=== PATIENT | female | born 2000 | race Caucasian/White ===

== ENCOUNTER 2020-09-29 20:08 | Emergency (ER) | payer OTHER, SELFPAY ==
[2020-09-29 20:17] VITALS: BP 117/62; PULSE 74; RESP 18; TEMP 37.3; O2SAT 98; BMI 23.6
--- NOTE | 2020-09-29 23:35 | ECG_ITS ---
Test Reason : DIZZINESS, SOB Blood Pressure : / mmHG Vent. Rate : 069 BPM Atrial Rate : 069 BPM P-R Int : 182 ms QRS Dur : 094 ms QT Int : 382 ms P-R-T Axes : 050 077 053 degrees QTc Int : 409 ms Normal sinus rhythm Normal ECG No previous ECGs available Referred By: Maritza Mendoza Electronically Signed By:JHON KIDD MD
--- NOTE | 2020-09-30 00:33 | ED.GENADULT ---
HPI - General Adult General Chief complaint: General Medical Stated complaint: chest pain shortness of breath Time Seen by Provider: 09/29/20 23:34 Source: patient Mode of arrival: ambulatory History of Present Illness HPI narrative: This is a 20-year-old female with history anxiety and currently on a waiting list to speak with an outpatient therapist but denies any suicidal symptoms or history of depression. She states she feels a sometimes at work she will become short of breath, began so hyperventilate and then feels chest pressure with tingling across her face and into bilateral hands. Otherwise, this is not been associated with any fever, chills, nausea vomiting, urinary or GI symptoms. No recent history of long car rides or plane trips, hemoptysis, estrogen supplementation, personal history of cancer, recent surgery or bed bound state, calf pain or calf swelling. Related Data Previous Rx's Medication Instructions Recorded hydroxyzine HCl 25 mg PO TID PRN #7 tab 09/30/20 Allergies Allergy/AdvReac Type Severity Reaction Status Date / Time No Known Allergies Allergy Unverified 01/29/20 19:05 [No Known Allergies*] Review of Systems Review of Systems: Pertinent positives and negatives as stated in HPI and 10 point review of systems is otherwise negative. [facility] Past Medical History Source: nursing notes reviewed Social History Social History Advance Directives: No Advance Directives Information Provided: Yes Patient : No Physical Exam Vital Signs: Vital Signs: Last Vital Signs Temp 99.2 F 09/29/20 20:17 Pulse 74 09/29/20 20:17 Resp 18 09/29/20 20:17 BP 117/62 09/29/20 20:17 Pulse Ox 98 09/29/20 20:17 Body Mass Index 23.6 VITAL SIGNS: Reviewed. GENERAL: Well developed, well nourished, in no acute distress. HEAD: Normocephalic/atraumatic EYES: PERRLA, EOMI EARS: Ext canals without abnormality NOSE: Nares patent bilateral OROPHARYNX: no oral lesions noted, posterior pharynx clear NECK: Supple, no adenopathy LUNGS: Normal breath sounds. No adventitious sounds or accessory muscle use. SpO2<98> CARDIOVASCULAR: Regular rate and rhythm without noted murmurs ABDOMEN: Soft, non-tender, non-distended with bowel sounds. NEUROLOGIC: Alert and oriented x 4. Course Course Course Narrative: This is a 20-year-old female with history and clinical presentation consistent with mild panic attack which has completely resolved on re-evaluation. Patient declined any lab work for further assessment at stating that this increased her anxiety. Urinalysis and urine is otherwise negative for any acute findings. She was provided with a 1 time dose of hydroxyzine and on re-evaluation endorsed improvement in feeling anxious. She is discharged in stable condition with instructions to follow up with the primary care provider. Medical Decision Making Lab Data Labs: Lab Results 09/30/20 09/30/20 Range/Units 01:15 01:15 Urine Color YELLOW Urine Appearance CLEAR Urine pH 6.5 (5.0-8.0) Ur Specific [place] 1.015 (1.005-1.025) Urine Protein NEG (NEG-TRACE) MG/DL Urine Glucose (UA) NEG (NEG) MG/DL Urine Ketones NEG (NEG) MG/DL Urine Blood NEG (NEG) Urine Nitrite NEG (NEG) Ur Leukocyte Esterase NEG (NEG) Urine Test NEGATIVE (NEGATIVE) ECG Data Attestation: I personally reviewed and interpreted this ECG as follows: Prior ECG tracings: not available for review Interpretation: Normal sinus rhythm, HR-69, no evidence of acute ischemia, NH/QRS/QTC are within normal limits. Discharge Plan Discharge Clinical Impression: Anxiety, Panic attack Patient Disposition: Home, Self-Care Instructions: Anxiety (ED), Panic Attack (ED) Additional Instructions: Please follow-up with your primary care provider in the next 2-3 days for re-evaluation. Return to the emergency department for any acute worsening of your symptoms. Prescriptions: New hydroxyzine HCl 25 mg tablet 25 mg PO TID PRN (Reason: anxiety) Qty: 7 RF: 0 Referrals: Sissy Martinez MD [Primary Care Provider] - 2 days (Re-evaluation for anxiety and panic attack symptoms.)
[2020-09-30 01:22] LABS: Glucose Urine UA NEG (NEG); Leukocyte Esterase Urine NEG (NEG); Nitrite Urine NEG (NEG); PH 6.5 (5.0-8.0); Specific Gravity - Urine 1.015 (1.005-1.025); Urine Blood NEG (NEG); Urine Ketones NEG (NEG); Urine Protein NEG (NEG-TRACE)
[2020-09-30 01:23] LABS: Appearance Urine CLEAR; Color Urine YELLOW; UPreg QC Valid YES; Urine Pregnancy NEGATIVE (NEGATIVE)
--- NOTE | 2020-09-30 02:20 | PC.NURSE ---
Patient refused blood work due to increased anxiety related to blood draws. aware. Plan to medicate then discharge home.
[2020-09-30] MEDS: hydrOXYzine HCL 25 MG TABLET PO (02:37)
== END 2020-09-30 02:41 | disposition home or self-care (01) ==
PROVIDERS: Emergency Provider Student in an Organized Health Care Education/Training Program; PCP Pediatrics
DX: F43.0 Acute stress reaction (principal); F41.1 Generalized anxiety disorder; R07.9 Chest pain, unspecified; Z79.899 Other long term (current) drug therapy
CPT/HCPCS: 81003; 81025; 93005; 99283

== ENCOUNTER 2021-02-01 05:14 | Emergency (ER) | payer OTHER, SELFPAY ==
[2021-02-01 05:27] VITALS: BP 127/80; PULSE 83; RESP 18; TEMP 36.4; O2SAT 98; BMI 25.7
--- NOTE | 2021-02-01 05:57 | ED_ITS ---
HPI - Abdominal Pain General Chief Complaint: Abdominal Pain <Itz Luther MD - Last Filed: 02/01/21 06:07> Stated Complaint: stomach pain so bad PT can't sleep <Itz Luther MD - Last Filed: 02/01/21 06:07> Time Seen by Provider: 02/01/21 05:57 <Itz Luther MD - Last Filed: 02/01/21 06:07> Source: patient <Itz Luther MD - Last Filed: 02/01/21 06:07> Mode of arrival: ambulatory <Itz Luther MD - Last Filed: 02/01/21 06:07> Limitations: no limitations <Itz Luther MD - Last Filed: 02/01/21 06:07> History of Present Illness HPI narrative: Patient with history of anxiety been having diffuse abdominal pain for last 2 - 3 days with nausea vomiting diarrhea and out of hydroxyzine with increased anxiety no relation pain with food no fever chills no urinary complaints no flank pain patient never had similar pain in the past <Itz Luther MD - Last Filed: 02/01/21 06:07> Related Data Home Medications: Previous Rx's Medication Instructions Recorded hydroxyzine HCl 25 mg tablet 25 mg PO TID PRN #7 tab 09/30/20 <Itz Luther MD - Last Filed: 02/01/21 06:07> Allergies/Adverse Reactions: Allergies Allergy/AdvReac Type Severity Reaction Status Date / Time No Known Allergies Allergy Unverified 01/29/20 19:05 [No Known Allergies*] <Itz Luther MD - Last Filed: 02/01/21 06:07> Review of Systems Review of Systems Yes all other systems are reviewed and are negative <Itz Luther MD - Last Filed: 02/01/21 06:07> Physical Exam Vital Signs: Vital Signs: Last Vital Signs Temp 97.6 F 02/01/21 05:27 Pulse 61 02/01/21 09:44 Resp 18 02/01/21 09:44 BP 127/80 02/01/21 05:27 Pulse Ox 98 02/01/21 09:44 Body Mass Index 25.7 <Itz Luther MD - Last Filed: 02/01/21 06:07> Vital Signs: Last Vital Signs Temp 97.6 F 02/01/21 05:27 Pulse 61 02/01/21 09:44 Resp 18 02/01/21 09:44 BP 127/80 02/01/21 05:27 Pulse Ox 98 02/01/21 09:44 Body Mass Index 25.7 <Darlin Garner MD - Last Filed: 02/01/21 09:51> Appearance: Alert. Oriented X3. No acute distress. Anxious Eyes: No pallor or icterus ENT: Pharynx normal. Oral Mucosa moist Neck: Normal inspection. Neck supple. CVS: Normal heart rate and rhythm. Pulses normal. Respiratory: No respiratory distress. Equal air entry bilateral, Abdomen: Soft, diffuse abdominal tenderness Souza sign negative no rebound tenderness or guarding, Bowel sounds are present, no mass palpable, no CVA tenderness Skin: Skin warm and dry. Normal skin color. Normal skin turgor. Neuro: Oriented X 3. <Itz Luther MD - Last Filed: 02/01/21 06:07> Course Course Course Narrative: Assessment and plan. This is a 20-year-old female came in for evaluation of abdominal pain and anxiety. Patient presented with 2 days of abdominal pain, nausea, vomiting, diarrhea seen initially by and signed out to me to check labs and reassess the patient. Patient now feels better able to tolerate p.o. intake, labs are unremarkable abdominal exam is soft, nontender, no rebound, normal bowel sounds. Will reassure and discharge. <Darlin Garner MD - Last Filed: 02/01/21 09:51> MDM - Abdominal Pain MDM Narrative Medical decision making narrative: Patient with diffuse abdominal pain likely from anxiety no focal tenderness will check the labs for to rule out pancreatitis/ cholecystitis/UTI <Itz Luther MD - Last Filed: 02/01/21 06:07> Lab Data Attestation: I reviewed the patient's lab results. <Darlin Garner MD - Last Filed: 02/01/21 09:51> Result diagrams: : 02/01/21 06:25 02/01/21 06:25 <Itz Luther MD - Last Filed: 02/01/21 06:07> Labs: Lab Results 02/01/21 02/01/21 02/01/21 Range/Units 06:25 06:25 07:50 WBC 11.2 H (4.8-10.8) X10*3/uL RBC 4.22 (4.20-5.50) X10*6/uL Hgb 12.6 (12.0-16.0) g/dl Hct 38.1 (37-47) % MCV 90.3 (80-98) fL MCH 29.9 (27.0-33.0) pg MCHC 33.1 (31.0-35.0) g/dl RDW 11.5 (11.0-16.0) % Plt Count 362 (160-400) X10*3/uL MPV 9.6 (9.4-12.3) fL Immature Gran % (Auto) 0.5 H (0.0-0.4) % Neut % (Auto) 75.0 H (45-73) % Lymph % (Auto) 16.2 L (20-40) % Maries % (Auto) 7.8 (2-11) % Eos % (Auto) 0.4 (0-4) % Baso % (Auto) 0.1 (0-2) % Lymph # (Auto) 1.8 (1.2-4.9) X10*3/uL Maries # (Auto) 0.9 (0.1-1.2) X10*3/uL Eos # (Auto) 0.0 (0.0-0.4) X10*3/uL Baso # (Auto) 0.0 (0.0-0.2) X10*3/uL Abs Immat Gran (auto) 0.06 H (0.00-0.03) X10*3/uL Absolute Neuts (auto) 8.4 H (2.0-8.3) X10*3/uL Absolute Nucleated RBC 0.000 (0.0-0.012) X10*3/uL Nucleated RBC % (auto) 0.0 (0.0-0.2) /100WBC Sodium 138 (135-145) mmol/L Potassium 3.9 (3.3-5.1) mmol/L Chloride 105 (96-108) mmol/L Carbon Dioxide 24 (22-29) mmol/L Anion Gap 13 (12-20) BUN 9 (9-16) mg/dL Creatinine 0.74 (0.5-1.4) mg/dL Estim Creat Clear Calc 119.3 Estimated GFR > 60 Random Glucose 128 H (60-115) mg/dL Calcium 9.9 (8.4-10.2) mg/dL Total Bilirubin 0.7 (0.0-1.0) mg/dL Direct Bilirubin 0.2 (0.0-0.5) mg/dL AST 13 (5-31) U/L ALT 19 (0-31) U/L Alkaline Phosphatase 75 (39-117) U/L Total Protein 7.5 (6.5-8.0) g/dL Albumin 4.5 (3.5-5.0) g/dL Lipase 15 (8-78) U/L Urine Color YELLOW Urine Appearance CLEAR Urine pH 6.5 (5.0-8.0) Ur Specific [place] <= 1.005 (1.005-1.025) Urine Protein NEG (NEG-TRACE) MG/DL Urine Glucose (UA) NEG (NEG) MG/DL Urine Ketones NEG (NEG) MG/DL Urine Blood NEG (NEG) Urine Nitrite NEG (NEG) Ur Leukocyte Esterase NEG (NEG) Urine Test (NEGATIVE) 02/01/21 Range/Units 07:50 WBC (4.8-10.8) X10*3/uL RBC (4.20-5.50) X10*6/uL Hgb (12.0-16.0) g/dl Hct (37-47) % MCV (80-98) fL MCH (27.0-33.0) pg MCHC (31.0-35.0) g/dl RDW (11.0-16.0) % Plt Count (160-400) X10*3/uL MPV (9.4-12.3) fL Immature Gran % (Auto) (0.0-0.4) % Neut % (Auto) (45-73) % Lymph % (Auto) (20-40) % Maries % (Auto) (2-11) % Eos % (Auto) (0-4) % Baso % (Auto) (0-2) % Lymph # (Auto) (1.2-4.9) X10*3/uL Maries # (Auto) (0.1-1.2) X10*3/uL Eos # (Auto) (0.0-0.4) X10*3/uL Baso # (Auto) (0.0-0.2) X10*3/uL Abs Immat Gran (auto) (0.00-0.03) X10*3/uL Absolute Neuts (auto) (2.0-8.3) X10*3/uL Absolute Nucleated RBC (0.0-0.012) X10*3/uL Nucleated RBC % (auto) (0.0-0.2) /100WBC Sodium (135-145) mmol/L Potassium (3.3-5.1) mmol/L Chloride (96-108) mmol/L Carbon Dioxide (22-29) mmol/L Anion Gap (12-20) BUN (9-16) mg/dL Creatinine (0.5-1.4) mg/dL Estim Creat Clear Calc Estimated GFR Random Glucose (60-115) mg/dL Calcium (8.4-10.2) mg/dL Total Bilirubin (0.0-1.0) mg/dL Direct Bilirubin (0.0-0.5) mg/dL AST (5-31) U/L ALT (0-31) U/L Alkaline Phosphatase (39-117) U/L Total Protein (6.5-8.0) g/dL Albumin (3.5-5.0) g/dL Lipase (8-78) U/L Urine Color Urine Appearance Urine pH (5.0-8.0) Ur Specific [place] (1.005-1.025) Urine Protein (NEG-TRACE) MG/DL Urine Glucose (UA) (NEG) MG/DL Urine Ketones (NEG) MG/DL Urine Blood (NEG) Urine Nitrite (NEG) Ur Leukocyte Esterase (NEG) Urine Test NEGATIVE (NEGATIVE) <Itz Luther MD - Last Filed: 02/01/21 06:07> Lab Results 02/01/21 02/01/21 02/01/21 Range/Units 06:25 06:25 07:50 WBC 11.2 H (4.8-10.8) X10*3/uL RBC 4.22 (4.20-5.50) X10*6/uL Hgb 12.6 (12.0-16.0) g/dl Hct 38.1 (37-47) % MCV 90.3 (80-98) fL MCH 29.9 (27.0-33.0) pg MCHC 33.1 (31.0-35.0) g/dl RDW 11.5 (11.0-16.0) % Plt Count 362 (160-400) X10*3/uL MPV 9.6 (9.4-12.3) fL Immature Gran % (Auto) 0.5 H (0.0-0.4) % Neut % (Auto) 75.0 H (45-73) % Lymph % (Auto) 16.2 L (20-40) % Maries % (Auto) 7.8 (2-11) % Eos % (Auto) 0.4 (0-4) % Baso % (Auto) 0.1 (0-2) % Lymph # (Auto) 1.8 (1.2-4.9) X10*3/uL Maries # (Auto) 0.9 (0.1-1.2) X10*3/uL Eos # (Auto) 0.0 (0.0-0.4) X10*3/uL Baso # (Auto) 0.0 (0.0-0.2) X10*3/uL Abs Immat Gran (auto) 0.06 H (0.00-0.03) X10*3/uL Absolute Neuts (auto) 8.4 H (2.0-8.3) X10*3/uL Absolute Nucleated RBC 0.000 (0.0-0.012) X10*3/uL Nucleated RBC % (auto) 0.0 (0.0-0.2) /100WBC Sodium 138 (135-145) mmol/L Potassium 3.9 (3.3-5.1) mmol/L Chloride 105 (96-108) mmol/L Carbon Dioxide 24 (22-29) mmol/L Anion Gap 13 (12-20) BUN 9 (9-16) mg/dL Creatinine 0.74 (0.5-1.4) mg/dL Estim Creat Clear Calc 119.3 Estimated GFR > 60 Random Glucose 128 H (60-115) mg/dL Calcium 9.9 (8.4-10.2) mg/dL Total Bilirubin 0.7 (0.0-1.0) mg/dL Direct Bilirubin 0.2 (0.0-0.5) mg/dL AST 13 (5-31) U/L ALT 19 (0-31) U/L Alkaline Phosphatase 75 (39-117) U/L Total Protein 7.5 (6.5-8.0) g/dL Albumin 4.5 (3.5-5.0) g/dL Lipase 15 (8-78) U/L Urine Color YELLOW Urine Appearance CLEAR Urine pH 6.5 (5.0-8.0) Ur Specific [place] <= 1.005 (1.005-1.025) Urine Protein NEG (NEG-TRACE) MG/DL Urine Glucose (UA) NEG (NEG) MG/DL Urine Ketones NEG (NEG) MG/DL Urine Blood NEG (NEG) Urine Nitrite NEG (NEG) Ur Leukocyte Esterase NEG (NEG) Urine Test (NEGATIVE) 02/01/21 Range/Units 07:50 WBC (4.8-10.8) X10*3/uL RBC (4.20-5.50) X10*6/uL Hgb (12.0-16.0) g/dl Hct (37-47) % MCV (80-98) fL MCH (27.0-33.0) pg MCHC (31.0-35.0) g/dl RDW (11.0-16.0) % Plt Count (160-400) X10*3/uL MPV (9.4-12.3) fL Immature Gran % (Auto) (0.0-0.4) % Neut % (Auto) (45-73) % Lymph % (Auto) (20-40) % Maries % (Auto) (2-11) % Eos % (Auto) (0-4) % Baso % (Auto) (0-2) % Lymph # (Auto) (1.2-4.9) X10*3/uL Maries # (Auto) (0.1-1.2) X10*3/uL Eos # (Auto) (0.0-0.4) X10*3/uL Baso # (Auto) (0.0-0.2) X10*3/uL Abs Immat Gran (auto) (0.00-0.03) X10*3/uL Absolute Neuts (auto) (2.0-8.3) X10*3/uL Absolute Nucleated RBC (0.0-0.012) X10*3/uL Nucleated RBC % (auto) (0.0-0.2) /100WBC Sodium (135-145) mmol/L Potassium (3.3-5.1) mmol/L Chloride (96-108) mmol/L Carbon Dioxide (22-29) mmol/L Anion Gap (12-20) BUN (9-16) mg/dL Creatinine (0.5-1.4) mg/dL Estim Creat Clear Calc Estimated GFR Random Glucose (60-115) mg/dL Calcium (8.4-10.2) mg/dL Total Bilirubin (0.0-1.0) mg/dL Direct Bilirubin (0.0-0.5) mg/dL AST (5-31) U/L ALT (0-31) U/L Alkaline Phosphatase (39-117) U/L Total Protein (6.5-8.0) g/dL Albumin (3.5-5.0) g/dL Lipase (8-78) U/L Urine Color Urine Appearance Urine pH (5.0-8.0) Ur Specific [place] (1.005-1.025) Urine Protein (NEG-TRACE) MG/DL Urine Glucose (UA) (NEG) MG/DL Urine Ketones (NEG) MG/DL Urine Blood (NEG) Urine Nitrite (NEG) Ur Leukocyte Esterase (NEG) Urine Test NEGATIVE (NEGATIVE) <Darlin Garner MD - Last Filed: 02/01/21 09:51> Discharge Plan Discharge Clinical Impression: Gastroenteritis <Itz Luther MD - Last Filed: 02/01/21 06:07> Patient Disposition: Home, Self-Care <Itz Luther MD - Last Filed: 02/01/21 06:07> Instructions: Gastroenteritis (ED) <Itz Luther MD - Last Filed: 02/01/21 06:07> Prescriptions: No Action hydroxyzine HCl 25 mg tablet 25 mg PO TID PRN (Reason: anxiety) Qty: 7 RF: 0 <Itz Luther MD - Last Filed: 02/01/21 06:07> Referrals: Sissy Martinez MD [Primary Care Provider] - 2 days <Itz Luther MD - Last Filed: 02/01/21 06:07> PMFSH Social History Social History: Social History Advance Directives: No Advance Directives Information Provided: Yes Patient : No <Itz Luther MD - Last Filed: 02/01/21 06:07>
[2021-02-01] MEDS: 0.9 % Sodium Chloride 1,000 ML 999 ML IVCONT (06:26)
[2021-02-01] MEDS: LORazepam 2 MG/ML VIAL 1 MG IVPUSH (06:27)
[2021-02-01] MEDS: ondansetron HCL 4 MG/2 ML VIAL IVPUSH (06:27)
[2021-02-01 06:34] LABS: MANUAL DIFF FLAG NO
[2021-02-01 06:44] LABS: Basophils Percent Auto 0.1 % (0-2); Eosinophils Percent Auto 0.4 % (0-4); Hematocrit 38.1 % (37-47); Hemoglobin 12.6 g/dl (12.0-16.0); Imm Gran Abs Auto 0.06 X10*3/uL (0.00-0.03); Imm Gran Pct Auto 0.5 % (0.0-0.4); Lymphocytes Absolute Auto 1.8 X10*3/uL (1.2-4.9); Lymphocytes Percent Auto 16.2 % (20-40); Mean Corpuscular HGB Conc 33.1 g/dl (31.0-35.0); Mean Corpuscular Hemoglobin 29.9 pg (27.0-33.0); Mean Corpuscular Volume 90.3 fL (80-98); Mean Platelet Volume 9.6 fL (9.4-12.3); Monocytes Absolute Auto 0.9 X10*3/uL (0.1-1.2); Monocytes Percent Auto 7.8 % (2-11); Neutrophils Absolute Auto 8.4 X10*3/uL (2.0-8.3); Platelet Count 362 X10*3/uL (160-400); Red Blood Count 4.22 X10*6/uL (4.20-5.50); Red Cell Distribution Width 11.5 % (11.0-16.0); White Blood Count 11.2 X10*3/uL (4.8-10.8)
[2021-02-01 06:54] LABS: Alanine Aminotransferase 19 U/L (0-31); Anion Gap 13 (12-20); Aspartate Amino Transferase 13 U/L (5-31); Bilirubin Direct 0.2 mg/dL (0.0-0.5); Bilirubin Total 0.7 mg/dL (0.0-1.0); Blood Urea Nitrogen 9 mg/dL (9-16); Calcium 9.9 mg/dL (8.4-10.2); Carbon Dioxide 24 mmol/L (22-29); Chloride 105 mmol/L (96-108); Creatinine Clr Calc Pharmacy 119.3; Estimated Glomerular Filt Rate > 60; Glucose Random 128 mg/dL (60-115); Potassium 3.9 mmol/L (3.3-5.1); Sodium 138 mmol/L (135-145); Total Protein 7.5 g/dL (6.5-8.0)
[2021-02-01 06:55] LABS: Albumin Level 4.5 g/dL (3.5-5.0); Alkaline Phosphatase 75 U/L (39-117); Lipase 15 U/L (8-78)
[2021-02-01 07:19] VITALS: PULSE 61; O2SAT 99
[2021-02-01 08:05] LABS: UPreg QC Valid YES; Urine Pregnancy NEGATIVE (NEGATIVE)
[2021-02-01 09:18] LABS: Appearance Urine CLEAR; Color Urine YELLOW; Glucose Urine UA NEG (NEG); Leukocyte Esterase Urine NEG (NEG); Nitrite Urine NEG (NEG); PH 6.5 (5.0-8.0); Specific Gravity - Urine <= 1.005 (1.005-1.025); Urine Blood NEG (NEG); Urine Ketones NEG (NEG); Urine Protein NEG (NEG-TRACE)
[2021-02-01 09:44] VITALS: PULSE 61; RESP 18; O2SAT 98
== END 2021-02-01 09:57 | disposition home or self-care (01) ==
PROVIDERS: Emergency Medicine; Emergency Provider Internal Medicine; PCP Pediatrics
DX: K52.9 Noninfective gastroenteritis and colitis, unspecified (principal); R10.9 Unspecified abdominal pain; R11.2 Nausea with vomiting, unspecified; Z79.899 Other long term (current) drug therapy
CPT/HCPCS: 36415; 80048; 80076; 81003; 81025; 83690; 85025; 96361; 96374; 96375; 99283; 99284; J2060; J2405